=== PATIENT | male | born 1960 | race Hispanic/Latino ===

== ENCOUNTER 2020-06-26 12:30 | Emergency (ER) | payer MEDICARE ==
[~2020-06-26] VITALS: Ht 177.8 cm; Wt 97.5 kg
[2020-06-26 13:55] VITALS: BP 122/76
[2020-06-26] MEDS ORDERED: KETOROLAC TROMETHAMINE 60 MG/2 ML VIAL IM ONE (14:00)
--- NOTE | 2020-06-26 14:11 | NUR ---
This RN walked into to discharge pt, after previously speaking in a sexually inappropriate manner, and was redirected. This RN needed assistance from another male coworker to assist with IM injection in buttocks d/t inappropriate behavior. RN walked into room, pt was slouched inbed with, RN walked to bus driver/monitor to remove for discharge, pt reached over attempted to grab this RNs buttocks, then pt began to touch his genitals. This RN told pt she needed to leave , immediately notified CN and MD. Will defer DC to another staff member.
--- NOTE | 2020-06-26 14:34 | Emergency Department Note ---
History of Present Illnes History of Present Illness Chief Complaint: Back Pain History of Present Illness This is a 59 year old male 59y/o male presents to ED with c/o L sciatica pain, LBP radiating to left leg down to toes x 1 month. 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 Pt reports his L side is stronger and has fallen twice last week which resulted in a ER visit at [facility]. Pt has healing abrasions to hands and back of arms, pt also reports hitting his head. Pt reports he received CT scan, and is was normal. Pt speaking inappropriately to this RN, redirected patient. . Historian: Patient, Jv Baseball Coach/EMS Arrival Mode: [facility] Treatment HAND FINISHER: See EMS Report Communications Strategist Required: No Onset (how long ago): month(s) (1) Location: low back to left leg Quality: pain Radiation: Reports extremity Severity: moderate Onset quality: gradual Timing of current episode: constant Chronicity: new Context: Reports trauma/injury; Denies recent illness Relieving factors: none Exacerbating factors: none Associated symptoms: Reports denies other symptoms Past Medical/Family History Physician Review I have reviewed the patient's past medical and family history. Any updates have been documented here. Past Medical History Recent Fever: No Clinical Suspicion of Infectio: No New/Unexplained Change in Ment: No Past Medical History: Hypertension, Hypothyroidism, GERD Other Medical History: TBI, R sided weakness d/t L side brain injury. Other Surgery: TBI-neurosurgical intervention, R eye, R ear, Cyst removal. Social History Smoking Cessation: Current some day smoker Counseling Performed: Yes Alcohol Use: None Any Illegal Drug Use: No TB Exposure/Symptoms: No Physically hurt or threatened: No Family History Family history of heart diseas: No Other Any Pre-Existing Lines (PICC,: No Review of Systems Review of Systems Constitutional: Reports no symptoms EENTM: Reports no symptoms Cardiovascular: Reports no symptoms Respiratory: Reports no symptoms Gastrointestinal: Reports no symptoms Genitourinary: Reports no symptoms Musculoskeletal: Reports as per HPI, Reports back pain Integumentary: Reports no symptoms Neurological: Reports no symptoms Psychological: Reports no symptoms Endocrine: Reports no symptoms Hematological/Lymphatic: Reports no symptoms Physical Exam Related Data Allergies: Coded Allergies: iodine (Verified Allergy, Unknown, 06/26/20) Triage Vital Signs Vital Signs Date Time Temp Pulse Resp B/P (MAP) Pulse Ox O2 Delivery O2 Flow Rate FiO2 06/26/20 12:52 98.6 82 18 127/86 96 Room Air Vital signs reviewed: Yes Physical Exam CONSTITUTIONAL Constitutional: Present well-developed, Present well-nourished HENT HENT: Present normocephalic, Present atraumatic, Present oropharynx clear/moist, Present nose normal HENT L/R: Present left ext ear normal, Present right ext ear normal EYES Eyes: Reports PERRL, Reports conjunctivae normal NECK Neck: Present ROM normal PULMONARY Pulmonary: Present effort normal, Present breath sounds normal CARDIOVASCULAR Cardiovascular: Present regular rhythm, Present heart sounds normal, Present capillary refill normal, Present normal rate GASTROINTESTINAL Abdominal: Present soft, Present nontender, Present bowel sounds normal GENITOURINARY Genitourinary: Present exam deferred SKIN Skin: Present warm, Present dry MUSCULOSKELETAL Musculoskeletal: Present ROM normal, Present other (neg SLR, DTR's normal, str left LE normal) NEUROLOGICAL Neurological: Present alert, Present oriented x 3, Present other (chronic weakness right leg, left side normal) PSYCHOLOGICAL Psychological: Present mood/affect normal, Present judgement normal Assessment & Plan Medical Decision Making MDM sciatica x 1 month, neurologically intact - pain control, pt already on steroids Reassessment Reassessment Tramadol, finish steroids, F/U PCP tomorrow, RTED sx's worsen or signs of cauda equina (D/W patient) Assessment & Plan Final Impression: (1) Sciatica Depart Disposition: HOME, SELF-CARE Last Vital Signs Date Time Temp Pulse Resp B/P (MAP) Pulse Ox O2 Delivery O2 Flow Rate FiO2 06/26/20 13:55 72 18 97 06/26/20 12:52 98.6 127/86 Room Air Medications in the ED Ketorolac Tromethamine 60 mg ONCE ONCE IM Last administered on 06/26/20at 13:49; Admin Dose 60 MG; Start 06/26/20 at 14:00; Stop 06/26/20 at 13:59; Status DC GRACIELA SAUCEDO MD Jun 26, 2020 14:34
== END 2020-06-26 13:59 | disposition home or self-care (01) ==
LOC: ER 13:00
DX: M54.42 Lumbago with sciatica, left side (principal); I10 Essential (primary) hypertension; E03.9 Hypothyroidism, unspecified; K21.9 Gastro-esophageal reflux disease without esophagitis; Z87.820 Personal history of traumatic brain injury; F17.210 Nicotine dependence, cigarettes, uncomplicated
CPT/HCPCS: 99283; J1885